=== PATIENT | female | born 1970 | race African-American/Black ===

== ENCOUNTER 2017-12-08 23:25 | Emergency (ER) | payer OTHER ==
--- NOTE | 2017-12-09 00:17 | ED Physician Documentation ---
Abdominal Pain - HISTORIAN Historian: patient, friend - HPI Stated Complaint: n/v/d Chief Complaint: Abdominal Pain Additonal Information: N/E/D onset 3 d ago prog worse. std w/ diarrhea prog to n/e est 3=-4 x daily unable to hold down much food or fluids - est 5-6 diarrhea movements per day. there was some bm black but now normal brown. emesis whitish frothy usually. Onset: days ago (3) Duration: waxing, waning, gradual (worse) Timing: worse Context: bad food (uncertain). denies: out of country travel Severity: moderate Quality: pain (mid to low abd) Associated Symptoms: nausea, vomiting, diarrhea. denies: fever, chills, coffee ground emesis, bloody emesis Exacerbated by: food Relieved by: nothing - ROS CONST: recent illness GI/: dark urine CVS/RESP: none. denies: palpitations, shortness of breath, hurts to breath, cough MS/SKIN/LYMPH: none. denies: leg swelling, rash, swollen glands, recent injury NEURO/PSYCH: none - SOCIAL HX Smoking History: non-smoker Alcohol Use: none Drug Use: none - FAMILY HX Family History: no significant history - PAST HX Past History: other (lupus nephritis htn anemia - under care [facility] [place]. renal function est 20%). denies: cardiac disease Home Medications: Ambulatory Orders Medication Instructions Recorded Aspirin [Rocky] 81 mg PO DAILY 11/14/15 Cholecalciferol [Vitamin D-3] 2,000 unit PO DAILY 11/14/15 Docusate Sodium [Colace] 200 mg PO BID 11/14/15 Ferrous Sulfate [Feosol] 45 mg PO D 11/14/15 Fluticasone Propionate [Flonase 1 spray NS BID 11/14/15 Nasal [place]] Labetalol HCl [Trandate] 100 mg PO BID 11/14/15 Levetiracetam 750 mg PO BID 11/14/15 Mirtazapine 15 mg PO HS 11/14/15 Pnv95/Ferrous Fumarate/FA 1 each PO D 11/14/15 [ [place]] Sodium Bicarbonate 650 mg PO TID 11/14/15 amLODIPine BESYLATE [Norvasc] 10 mg PO 0900 11/14/15 diphenhydrAMINE HCL [Benadryl] 25 mg PO HS 11/14/15 Atorvastatin Calcium [Lipitor] 80 mg PO D 12/09/17 Calcitriol [Rocaltrol] 0.5 mcg PO [id number] 12/09/17 Ergocalciferol (Vitamin D2) 50,000 units PO WEEK 12/09/17 [Vitamin D-2] Ibuprofen [Advil] 400 mg PO BID 12/09/17 Vit/Iron Fumarate/FA 1 tab PO D 12/09/17 [ Tablet] Allergies/Adverse Reactions: Allergies Allergy/AdvReac Type Severity Reaction Status Date / Time sulfamethoxazole Allergy Verified 12/08/17 23:59 [From Bactrim] trimethoprim [From Bactrim] Allergy Verified 12/08/17 23:59 - VITAL SIGNS Vital Signs: Vital Signs Temp Pulse Resp BP Pulse Ox 98.2 F 74 16 138/77 100 12/08/17 23:25 12/09/17 03:58 12/09/17 03:58 12/09/17 03:58 12/09/17 03:58 - REVIEWED ASSESSMENTS Nursing Assessment Reviewed: Yes Vitals Reviewed: Yes ED Results Lab/Radiology - Lab Results Lab Results: Lab Results 12/09/17 12/09/17 12/09/17 00:43 00:43 00:43 WBC 3.50 K/ul L K/ul (4.00-12.00) RBC 3.56 M/ul L M/ul (3.90-5.20) Hgb 9.8 g/dL L g/dL (12.0-16.0) Hct 30.9 % L % (34.5-46.5) MCV 86.8 fl fl (80.0-100.0) MCH 27.7 pg L pg (28.0-34.0) MCHC 31.9 g/dL g/dL (30.0-36.0) RDW 12.9 % % (11.3-14.3) Plt Count 167 K/mm3 K/mm3 (130-400) Neut % (Auto) 53.9 % % (39.0-79.0) Lymph % (Auto) 36.4 % % (16.0-50.0) [place] % (Auto) 3.6 % % (0.0-11.0) Eos % (Auto) 3.1 % % (0.0-6.8) Baso % (Auto) 0.2 (0.0-1.5) Neut # (Auto) 1.9 # k/uL # k/uL (1.4-7.7) Lymph # (Auto) 1.3 # k/uL # k/uL (0.6-4.0) [place] # (Auto) 0.1 # k/uL # k/uL (0.0-0.9) Eos # (Auto) 0.1 # k/uL # k/uL (0.0-0.6) Baso # (Auto) 0.0 # k/uL # k/uL (0.0-0.5) Reactive Lymphs % 2.9 % % (0.0-5.0) Reactive Lymphs # 0.1 # k/uL # k/uL (0.0-0.8) Sodium 142 mmol/L mmol/L (136-145) Potassium 4.1 mmol/L mmol/L (3.5-5.1) Chloride 108 mmol/L H mmol/L (98-107) Carbon Dioxide 17 mmol/L L mmol/L (22-30) BUN 25 mg/dL H mg/dL (7-17) Creatinine 2.70 mg/dL H mg/dL (0.52-1.04) Estimated Creat Clear 29 Est GFR ( Amer) 25 L (60 - ) Est GFR (Non-Af Amer) 20 L (60 - ) Glucose 85 mg/dL mg/dL (74-106) Calcium 8.9 mg/dL mg/dL (8.4-10.2) Total Bilirubin 0.6 mg/dL mg/dL (0.2-1.3) AST 32 U/L U/L (15-46) ALT 44 U/L U/L (13-69) Alkaline Phosphatase 242 U/L H U/L (38-126) Total Protein 8.5 g/dL H g/dL (6.3-8.2) Albumin 4.3 g/dL g/dL (3.5-5.0) Lipase 129 U/L U/L (23-300) - Orders Orders: ED Orders Category Date Time Status Place IV Lock 1T Care 12/09/17 00:[address] ABD & PELVIS W/O CON Stat Exams 03/17/18 Taken CBC/PLATELET/DIFF Routine Lab 12/09/17 00:43 Completed CMP Routine Lab 12/09/17 00:43 Completed LIPASE Stat Lab 12/09/17 00:43 Completed URINALYSIS Routine Lab 12/09/17 Ordered 0.9 % Sodium Chloride [Normal Saline] 1,000 ml Med 12/09/17 00:34 Discontinued IV .STK-MED 0.9 % Sodium Chloride [Normal Saline] 1,000 ml Med 12/09/17 00:30 Discontinued IV Q10H Ondansetron HCl/Pf [Zofran 4 mg/2 ml] Med 12/09/17 00:08 Discontinued 4 mg IVP NOW ONE EKG WITH COMPARISON Stat Ther 12/09/17 Ordered Abdominal Pain Physical Exam - Physical Exam General Appearance: alert, moderate distress EENT: eye inspection normal NECK: normal inspection, thyroid normal. No: carotid bruit RESPIRATORY: no resp distress, breath sounds normal CVS: reg rate & rhythm, heart sounds normal ABDOMEN: soft, tenderness (ess all over abd tender but worse lower abd starts ulq to mid abd then lower), rebound. No: distended, guarding SKIN: warm/dry, normal color. No: cyanosis, diaphoresis, jaundice EXTREMITIES: non-tender, normal range of motion NEURO: oriented X3, motor nml, sensation nml, mood/affect nml Vital Signs: Vital Signs Temp Pulse Resp BP Pulse Ox 98.2 F 74 16 138/77 100 12/08/17 23:25 12/09/17 03:58 12/09/17 03:58 12/09/17 03:58 12/09/17 03:58 Discharge Clincal Impression: gastroenteritis, dehydration, Lupus, lupus nephritis Referrals: Ever Crocker [Primary Care Provider] - 2 Days Comments: pt better home cont oral rehydration Condition: Good Disposition: 01 HOME, SELF-CARE Decision to Admit: NO Decision Time: 03:25
[2017-12-09] MEDS ORDERED: 0.9 % SODIUM CHLORIDE 1,000 ML IV ONE (00:34)
[2017-12-09] MEDS: ONDANSETRON HCL/PF 4 MG/ 2ML VIAL IVP ONE (00:40)
[2017-12-09] MEDS: 0.9 % SODIUM CHLORIDE 1,000 ML IV SCH (00:45)
[2017-12-09 00:57] LABS: BASOPHILS % 0.2 (0.0-1.5); EOSINOPHILS % 3.1 % (0.0-6.8); MEAN CORPUSCULAR HEMOGLOBIN 27.7 pg (28.0-34.0); MEAN CORPUSCULAR VOLUME 86.8 fl (80.0-100.0); MONOCYTES % 3.6 % (0.0-11.0); NEUTROPHILS # 1.9 # k/uL (1.4-7.7)
[2017-12-09 04:01] VITALS: BP 138/77
[2017-12-09 07:19] LABS: APPEARANCE,URINE CLEAR (CLEAR); COLOR,URINE YELLOW (YELLOW); OCCULT BLOOD,URINE 1+ (NEGATIVE); UROBILINOGEN URINE 0.2 Eu (0.2-1.0)
--- NOTE | 2017-12-09 10:13 | Diagnostic Imaging Report ---
BEVERLY PERSON [facility] [address] [facility].[address] [id number] Report Submission Date: Dec 09, 2017 1:44:16 AM CDT Patient Study Name: AVELINA SMITH Date: Dec 09, 2017 1:23:28 AM CDT Modality Type: CT\SR Gender: F Description: CT ABD/PELV W/C : 72 Institution: [facility] Physician: BEVERLY PERSON CT of the abdomen and pelvis without contrast Clinical history: ABDOMINAL PAIN Technique: CT abdomen and pelvis was performed without oral or intravenous administration of contrast. Intravenous contrast was not administered because of the patient's renal insufficiency. Findings: Visualized lung bases are clear. Liver and spleen demonstrate normal attenuation without focal defect. Gallbladder is surgically absent. There is no pancreatic or adrenal abnormality. Kidneys are hypodense with an appearance suggestive of multiple small cysts. This would be better evaluated with ultrasound. Vascular calcification is present in the abdominal aorta without evidence of aneurysm. There is a right ovarian cyst or adjacent follicles measuring up to 4 cm in size. Bladder is unremarkable. No free fluid in the pelvis or abdomen. The uterus is within normal limits. There is increased fluid in the small bowel and increased liquid stool in the colon consistent with gastroenteritis. Impression: 1. Findings of gastroenteritis. 2. Hypodense kidneys suggesting small cysts. 3. Vascular calcification. 4. Postoperative changes. 5. Right ovarian cyst or adjacent follicles. Electronically signed on Dec 09, 2017 1:44:16 AM CDT by: Reid PAUL
== END 2017-12-09 03:40 | disposition home or self-care (01) ==
LOC: ED 23:25
DX: E86.0 Dehydration (principal); K52.89 Other specified noninfective gastroenteritis and colitis; M32.14 Glomerular disease in systemic lupus erythematosus; I10 Essential (primary) hypertension
CPT/HCPCS: 74176; 80053; 81002; 83690; 85025; 87086; J2405; J7030; 87186; 96360; 96361; 96374; 99283; S1016